=== PATIENT | female | born 1995 | race Caucasian/White ===

== ENCOUNTER 2023-05-28 14:49 | Emergency (ER) | payer OTHER, BC, SELFPAY ==
[2023-05-28 14:52] VITALS: BP 130/78
--- NOTE | 2023-05-28 15:39 | ED.GENMED ---
History of Present Illness
General
Chief Complaint: Skin Surface Trauma
Source: patient
Exam Limitations: none
Time Seen by Provider: 05/28/23 15:00
Nursing documentation reviewed up to this point in time: agreed with
Travel History
Have you had any contact with someone who has COVID-19?: No
Do you have any symptoms of coronavirus? Fever > 100 degrees, chills, cough, shortness of breath, sore throat, loss of taste or smell, muscle aches, or headache?: No
History of Present Illness
History of Present Illness:
pt is a 27 yo R hand dominant F
here with left middle finger laceration when at work whne she was dumping out the trash, she accidentally cut on the dumpster door, the index fingertip
bleeding controlled
teatnus uknonwn
pain controlled
Past History
Past History
ED Past Medical History: Other (Seasonal allergies)
ED Past Surgical History: None
Social History
Tobacco: Non-smoker
Personal: Single
Living: with family
Review of Systems
Review of Systems
Allergies reviewed?: Yes
All Other Systems: Not applicable
Phy Exam
Physical Exam
Physical Exam:
GENERAL: Alert , in no apparent distress, comfortable at rest
HEAD: NCAT
CV: < 2 sec cap reifill
NEUROLOGICAL: Alert and oriented, no focal neuro deficits, , 5/5 strength, sensation intact, ambulation slight limp right leg
SKIN: Warm and dry, linear 1 cm laceration fat pad of middle fingertip, oozing
MUSCULOSKELETAL: linear fingertip laceration
full rom of the finger
nv intact;
PSYCH: Normal and appropriate interaction.
Course
Orders/Labs/Results
Orders:
Orders
05/28/23 15:49
Tetanus/Diphth/Acelpertussis [Adacel] 0.5 ml IM .ONCE ONE
05/28/23 15:50
Tetanus/Diphth/Acelpertussis [Adacel] 0.5 ml .ROUTE .STK-MED ONE
Vital Signs
Initial and Last Documented VS:
Initial Vital Signs
Temp Pulse Resp BP Pulse Ox
97.8 F 96 18 130/78 99
05/28/23 14:52 05/28/23 14:52 05/28/23 14:52 05/28/23 14:52 05/28/23 14:52
Last Documented Vital Signs
Temp Pulse Resp BP Pulse Ox
97.8 F 96 18 130/78 99
05/28/23 14:52 05/28/23 14:52 05/28/23 14:52 05/28/23 14:52 05/28/23 14:52
Procedures
Laceration Closure
Left Third Finger(s):
Status of Wound: clean
Size of Wound in cm: 1
Description of Wound Edges: sharp and flap-well vascularized
Preparation: cleaned with saline
Anesthesia: 1% Lidocaine
Revision/Debridement: routine- no revision
Wound exploration: explored to base- no FB
Type of Closure: single layer closure
Skin Closure Material: 5-0 nylon
Number of sutures: 3
MDM/Problems Addressed
Differential Diagnosis Includes:
laceration, finger injury
MDM/Problems Addressed:
27 y/o F with laceration to left fingertip today
bleeding slightly
nv intact
tetanus unknown
sutures well approximated wound after irrigation
suture removal 7-10 days, wound care
*Critical Care Note
Total Time (30-74mins, 75-104mins- exclusive of procedures): Not Applicable
ED Attending Note
-
Portions of this chart may have been created with voice recognition software.� Occasional wrong word or��sound alike� substitutions may have occurred due to the inherent limitations of voice recognition software.
Discharge Plan
Departure
Patient Disposition: Home (Routine Discharge)
Date of Disposition: 05/28/23
Time of Disposition: 15:43
Patient with high blood pressure during this ER visit?: No
Condition: Fair
Covid-19: Not Applicable
Discharge Problem:
Laceration of finger
Instructions: Laceration Repair With Stitches (DC)
Prescriptions:
No Action
fluticasone propionate 1 SPRAY spray,suspension
1 spray intranasal DAILY
epinephrine [EpiPen] 0.3 MG/0.3/SYRINGE auto-injector
0.3 mg IM .STAT PRN (Reason: allergic reaction) Qty: 1 0RF
multivitamin Tablet
1 tab PO DAILY
propranolol 20 mg Tablet
20 mg PO BID
loratadine [Claritin] 10 mg Tablet
10 mg PO DAILY PRN (Reason: allergies)
Referrals:
Frank Monique MD [Family Provider] - Follow up in 1 week
Stand Alone Forms: Return to Work
Activity Restrictions/Additional Instructions:
KEEP THE WOUND CLEAN AND DRY FOR 24 HOURS
AFTER THAT YOU CAN GET IT WET IN THE BATH/SHOWER ONCE A DAY AND MAKE SURE IT IS CLEAN AND THERE IS NO DRIED BLOOD ON THE STITCHES
APPLY NEOSPORIN AND A BANDAID
THE STITCHES NEED TO BE REMOVED IN ABOUT 7-10 DAYS, SEE YOUR DOCTOR FOR THIS. or wherever your company is sending you for workman
s comp
THE LAST DAY BEFORE STITCHES OUT, NO OINTMENT, LEAVE OPEN TO AIR
WATCH FOR SIGNS OF INFECTION AND RETURN NEEDED FOR PAIN, SWELLING, REDNESS, DRAINAGE, BLEEDING.
MOTRIN NEEDED FOR PAIN.
Interventions
Interventions:
ED-Skin Assessment Last Done: 05/28/23 15:20
[2023-05-28] MEDS: ADACEL 0.5 ML IM (15:57)
== END 2023-05-28 15:30 | disposition home or self-care (01) ==
LOC: EMR 14:49
PROVIDERS: EMERGENCY PHYSICIAN Emergency Medicine; FAMILY PHYSICIAN Family Medicine
DX: S61.213A Laceration without foreign body of left middle finger without damage to nail, initial encounter (principal); W45.8XXA Other foreign body or object entering through skin, initial encounter; Y99.0 Civilian activity done for income or pay; Z23 Encounter for immunization
CPT/HCPCS: 99284; 12001; 90471; 90715

== ENCOUNTER → 2025-01-07 10:41 | Outpatient (REF) | payer BC, SELFPAY | LOC: RAD 10:41 | PROVIDERS: ATTENDING PHYSICIAN Student in an Organized Health Care Education/Training Program | DX: M25.561 Pain in right knee (principal) | CPT/HCPCS: 73564 ==